=== PATIENT | female | born 1980 | race Caucasian/White ===

== ENCOUNTER → 2016-11-27 | Outpatient (CLI) | payer BC ==
--- NOTE | 2016-11-27 14:36 | RAD ---
HISTORY: Low back pain, radiculopathy Study: Lumbar spine five view Comparison: None Findings: Normal alignment of the lumbar spine is maintained. The posterior elements appear unremarkable in t heir appearance. The disk space height is maintained without significant endplate sclerosis. No ev idence for acute fracture can be identified. There is no evidence for spondylolysis or spondylolisth esis. The SI joints are normal. IMPRESSION: 1. Negative exam. Reported By:
== END ==
LOC: RAD 13:15
PROVIDERS: ATTEND Internal Medicine
DX: M54.5 Low back pain (principal); R26.89 Other abnormalities of gait and mobility
CPT/HCPCS: 72110

== ENCOUNTER → 2016-12-08 | Outpatient (CLI) | payer BC ==
--- NOTE | 2016-12-09 07:40 | MRI ---
HISTORY: Low back pain Study: MRI lumbar spine without contrast Comparison: None Technique: Multiplanar multi-sequence MRI of the lumbar spine was obtained. Sagittal T1, sagittal T 2, and stir weighted images, axial T1, and axial T2 images were obtained. Findings: The lumbar spine demonstrates normal alignment with the expected signal characteristics of the bone marrow. The conus of the cord terminates normally. T12 -- L1: No evidence for compressive disc disease. The neural foramina are patent. The joints are normal. L1 -- L2: No evidence for compressive disc disease. The neural foramina are patent. The joints are n ormal. L2 -- L3: No evidence for compressive disc disease. The neural foramina are patent. The joints are n ormal. L3 -- L4: No evidence for compressive disc disease. The neural foramina are patent. The joints are n ormal. L4 -- L5: No evidence for compressive disc disease. The neural foramina are patent. The joints are n ormal. L5 -- S1: No evidence for compressive disc disease. The neural foramina are patent. The joints are n ormal. IMPRESSION: No evidence for compressive disc disease or compresses spondylitic change at any level Reported By:
== END | disposition home or self-care (01) ==
LOC: RAD 14:52
PROVIDERS: ATTEND Nurse Practitioner Family
DX: R20.2 Paresthesia of skin (principal); M51.36 Other intervertebral disc degeneration, lumbar region; S39.012A Strain of muscle, fascia and tendon of lower back, initial encounter; X58.XXXA Exposure to other specified factors, initial encounter
CPT/HCPCS: 72148

== ENCOUNTER → 2016-12-11 | Outpatient (CLI) | payer BC ==
[~2016-12-11] MED LIST: NS 100 ML IV 100 ML IV ONE
--- NOTE | 2016-12-11 13:56 | CT ---
CT angiography with bilateral lower extremity runoff with and without contrast Indication: Numbness and tingling in the lower extremities, claudication Comparison: None available Technique: Multiple axial images of the abdomen and pelvis were obtained from the mesenteric vasculature to the plantar surface of the feet both prior to and after the administration of IV contrast. 3D reconstr uctions were performed utilizing radial maximum intensity projection imaging. Radiation dose reduction techniques were performed utilizing adjustment for MA/kVP based on patient body size. Nonvascular findings: Small fat containing periumbilical hernia. The upper and lower GI tract demonstrate no evidence of mass, obstruction or bowel wall thickening t o suggest acute inflammation. Urinary bladder is normal. No pelvic free fluid or adenopathy. Review of bone windows demonstrates no acute osseous abnormality. Vascular findings: Descending thoracic aorta: No aneurysm, high grade stenosis or occlusion. Suprarenal abdominal aorta: No aneurysm, high grade stenosis or occlusion. Celiac, hepatic, splenic arteries, SMA and ERA: No aneurysm, high grade stenosis or occlusion. Infrarenal abdominal aorta: No aneurysm, high grade stenosis or occlusion. Right common, internal and external iliac arteries: No aneurysm, high grade stenosis or occlusion. Right common femoral artery: No aneurysm, high grade stenosis or occlusion Right superficial femoral artery: No aneurysm, high grade stenosis or occlusion. Right popliteal artery: No aneurysm, high grade stenosis or occlusion. Right tibioperoneal trunk: No aneurysm, high grade stenosis or occlusion. Right common peroneal, anterior and posterior tibial arteries: there is early occlusion of the anter ior tibialis artery within the foreleg with the dorsalis pedis provided by the common peroneal arter y. Left common, internal and external iliac arteries: No aneurysm, high grade stenosis or occlusion. Left common femoral artery: No aneurysm, high grade stenosis or occlusion. Left superficial femoral artery: No aneurysm, high grade stenosis or occlusion. Left popliteal artery: No aneurysm, high grade stenosis or occlusion. Left tibioperoneal trunk: No aneurysm, high grade stenosis or occlusion. Left common peroneal, anterior and posterior tibial arteries: No aneurysm, high grade stenosis or oc clusion. 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 Normal 3 vessel runoff to the ankle and 2 vessel runoff to the foot is noted on the left. Reported By:
== END ==
LOC: RAD 10:27
PROVIDERS: ATTEND Nurse Practitioner Family
DX: M54.5 Low back pain (principal); S39.012A Strain of muscle, fascia and tendon of lower back, initial encounter; X58.XXXA Exposure to other specified factors, initial encounter; M51.36 Other intervertebral disc degeneration, lumbar region; R20.2 Paresthesia of skin; G96.8 Other specified disorders of central nervous system
CPT/HCPCS: 73706; A4222

== ENCOUNTER → 2016-12-24 | Outpatient (CLI) | payer BC ==
--- NOTE | 2016-12-24 10:34 | MRI ---
Examination: MRI of the thoracic spine. Clinical History: Pain in lower thoracic spine. Technique: Multiple sequences were obtained in the sagittal and axial planes. Comparison: None available. Findings: The thoracic spine was imaged from the level of C7 down to the level of L1. The spinal cord is cheyanne l in appearance with no signal change or mass lesion noted. The conus medullaris is at the level of L1. The vertebral body alignment is within normal limits. The intervertebral disc spaces are well mainta ined. No vertebral body signal abnormality is noted. Tiny vertebral body endplate deformities, consistent with Schmorl's nodes are present at the T7, T8, T9, T10 and T11 levels. No paraspinal abnormality is noted. T10-T11: There is a tiny 3 mm focal left paracentral protrusion of the disc seen mildly encroaching on the ventral aspect of the thecal sac, without neural foraminal narrowing or central canal stenosi s. There is no focal or diffuse bulge of the anulus fibrosis, neural foraminal narrowing or central can al stenosis noted at any of the other levels in the thoracic spine. Impression: 1. There is a tiny 3 mm focal left paracentral protrusion of the disc seen at the T10-T11 level, mil dly encroaching on the ventral aspect of the thecal sac, without neural foraminal narrowing or centr al canal stenosis. 2. Tiny Schmorl's nodes are present at multiple levels in the thoracic spine, as described above. Reported By:
== END ==
LOC: RAD 08:21
PROVIDERS: ATTEND Nurse Practitioner Family
DX: M54.6 Pain in thoracic spine (principal); M54.2 Cervicalgia; R20.2 Paresthesia of skin; R29.2 Abnormal reflex; R53.83 Other fatigue; M79.1 Myalgia; J01.80 Other acute sinusitis; R50.9 Fever, unspecified
CPT/HCPCS: 72146

== ENCOUNTER → 2017-02-10 | Outpatient (CLI) | payer BC ==
--- NOTE | 2017-02-10 11:32 | CT ---
Lumbar spine CT without contrast Indication: Lower back pain Technique: Helical CT images of the lumbar spine were obtained without contrast. Reformatted images in the coronal and sagittal planes were also generated for review. Comparison: MRI December 08, 2016 Findings: Lumbar spine vertebral body heights and alignment appear normal. No acute fracture or subluxation is identified. No aggressive osseous lesions are seen. The intervertebral disc spaces appear well maintained without appreciable narrowing, significant dis c bulge or endplate sclerosis. No appreciable facet arthropathy or spondylolysis/spondylolisthesis i s identified. The SI joints appear well maintained. The imaged paraspinal soft tissues demonstrate a grossly cheyanne l, noncontrast appearance. Impression: Essentially unremarkable noncontrast CT examination of the lumbar spine. Reported By:
--- NOTE | 2017-02-10 15:46 | MRI ---
HISTORY: Spondylosis with myelopathy. Study: MRI cervical spine without contrast. Comparison: None. Technique: Multiplanar multisequence MRI of the cervical spine was obtained utilizing standard depar tmental protocol. Findings: The visualized posterior fossa appears normal. No cerebellar tonsillar ectopia. Anatomic alignment w ithout acute fracture or listhesis. No significant disc desiccation or disc height loss. The bone ma rrow signal is unremarkable. The visualized spinal cord demonstrates normal course, caliber, and sig nal characteristics. There is a 1.5 x 0.8 cm nodule within the right thyroid lobe. Remaining thyroid gland appears normal. Remaining prevertebral soft tissues and lung apices appear normal. C2 -- C3: No significant disc bulge, neural foraminal narrowing, or spinal canal stenosis. C3 -- C4: No significant disc bulge, neural foraminal narrowing, or spinal canal stenosis. C4 -- C5: No significant disc bulge, neural foraminal narrowing, or spinal canal stenosis. C5 -- C6: No significant disc bulge, neural foraminal narrowing, or spinal canal stenosis. C6 -- C7: No significant disc bulge, neural foraminal narrowing, or spinal canal stenosis. C7 -- T1: No significant disc bulge, neural foraminal narrowing, or spinal canal stenosis. IMPRESSION: 1. No significant neural foraminal narrowing or spinal canal stenosis. 2. 1.5 cm right thyroid nodule as above. Recommend dedicated thyroid ultrasound for further characte rization. Reported By:
== END | disposition home or self-care (01) | DRG 552 ==
LOC: RAD 09:31
PROVIDERS: ATTEND Neurological Surgery
DX: M47.12 Other spondylosis with myelopathy, cervical region (principal); M54.5 Low back pain; E04.1 Nontoxic single thyroid nodule
CPT/HCPCS: 72131; 72141

== ENCOUNTER → 2017-02-12 | Outpatient (CLI) | payer BC ==
--- NOTE | 2017-02-12 11:08 | US ---
HISTORY: Thyroid nodule seen on previous MRI Study: Ultrasound of the thyroid Comparison: MRI of the cervical spine performed on February 10, 2017 Technique: Multiple osuna scale images of the thyroid were obtained. Findings: The right lobe of the thyroid measures 4.2 x 1.1 x 1.5 cm. A solid-appearing nodule measuring 1.0 x 1.3 x 1.6 cm is noted within the right lobe of the thyroid. The left lobe of the thyroid measures 3. 9 x 1.7 x 1.4 cm. The isthmus measures 0.3 cm. IMPRESSION: 1. Right-sided thyroid nodule as noted above. Reported By:
== END | disposition home or self-care (01) ==
LOC: RAD 08:58
PROVIDERS: ATTEND Nurse Practitioner Family
DX: E04.1 Nontoxic single thyroid nodule (principal)
CPT/HCPCS: 76536

== ENCOUNTER → 2017-03-17 | Outpatient (CLI) | payer BC ==
--- NOTE | 2017-03-18 09:07 | NM ---
THYROID UPTAKE AND SCAN CLINICAL INDICATION: Nontoxic single thyroid nodule PROCEDURE: The patient received an oral dose of 20.0 mCi of Sarah-123 and images were obtained at appr oximately 24 hours with markers on the chin and sternal notch. The I-123 uptake in the thyroid gland was calculated based on standard probe measurement at approximately 24 hours. COMPARISON: Thyroid ultrasound 02/12/2017 FINDINGS: The thyroid gland is normal in position and configuration. Planar view suggests the thyroid is normal in size. Tracer distribution is homogeneous throughout the gland. The 24-hour I-123 thyroid uptake i s 5.6 % (normal = 10-30%). IMPRESSION: 1. 24-hour I-123 thyroid uptake is 5.6 % (normal = 10-30%). 2. Morphologically normal thyroid scan. Reported By:
== END ==
LOC: RAD 08:21
PROVIDERS: ATTEND Nurse Practitioner Family
DX: E04.1 Nontoxic single thyroid nodule (principal)
CPT/HCPCS: 78014

== ENCOUNTER → 2017-03-19 | Outpatient (CLI) | payer BC ==
--- NOTE | 2017-03-20 10:39 | MRI ---
STUDY: MRI OF THE BRAIN WITHOUT GADOLINIUM History: Chronic migraine. Comparison: None. Technique: Multiplanar multi-sequence MRI of the brain was obtained utilizing standard departmental p rotocol. Sagittal and axial T1, axial T2, FLAIR, diffusion (DWI/ADC) images through the brain were pe rformed. Findings: The sulci, cisterns, and ventricles are age appropriate. There is no evidence of acute terr itorial infarction, hemorrhage, mass, mass effect or midline shift. There are no abnormal intra-axial or extra-axial fluid collections. The major intracranial vascular flow voids are intact. IMPRESSION: 1. No evidence of acute intracranial abnormality. Reported By:
== END ==
LOC: RAD 15:53
PROVIDERS: ATTEND Neurological Surgery
DX: G43.709 Chronic migraine without aura, not intractable, without status migrainosus (principal)
CPT/HCPCS: 70551